=== PATIENT | female | born 1980 | race Caucasian/White ===

== ENCOUNTER 2023-06-15 03:01 | Emergency (ER) | payer SELFPAY ==
[~2023-06-15] VITALS: Ht 165.1 cm; Wt 80.0 kg
[2023-06-15 03:08] VITALS: O2SAT 99
[2023-06-15] MEDS: LORAZEPAM 2MG/ML INJ IV ONE (03:15)
[2023-06-15 03:33] LABS: BASOPHILS % 0.5 % (0.0-2.0); EOSINOPHILS % 5.2 % (0.0-5.0); HEMATOCRIT. 42.8 % (36.0-48.0); LYMPHOCYTES % 19.9 % (20.0-50.0); MEAN CORPUSCULAR HEMOGLOBIN 32.8 pg (28.0-32.0); MEAN CORPUSCULAR HGB CONC 35.1 g/dL (31.0-37.0); MEAN CORPUSCULAR VOLUME 93.4 fL (81.0-99.0); MEAN PLATELET VOLUME 10.5 fl (7.4-10.4); MONOCYTES % 5.2 % (2.0-8.0); NEUTROPHILS % 69.2 % (40.0-76.0); PLATELET 223 x1000/uL (130-400); RED BLOOD CELL COUNT 4.58 mill/uL (4.2-5.4)
[2023-06-15 03:48] LABS: ACETAMINOPHEN < 2 ug/mL (10-30); ALANINE AMINOTRANSFERASE 12 IU/L (10-49); ALBUMIN 4.7 g/dL (3.2-4.8); ASPARTATE AMINOTRANSFERASE 17 IU/L (<34); BILIRUBIN TOTAL 0.5 mg/dL (0.1-1.0); CALCIUM 9.2 mg/dL (8.7-10.4); CARBON DIOXIDE 25 mEq/L (21-32); CHLORIDE 105 mEq/L (98-107); CREATINE KINASE 114 IU/L (34-145); CREATININE 0.8 mg/dL (0.6-1.0); GLUCOSE 141 mg/dL (70-105); POTASSIUM 3.4 mEq/L (3.5-5.1); PROTEIN TOTAL 7.1 g/dL (6.0-8.3); SODIUM 137 mEq/L (136-145); UREA NITROGEN BLOOD 6 mg/dL (9-23)
[2023-06-15 03:51] LABS: ETHANOL BLOOD < 10 mg/dL (<10); TROPONIN I HIGH SENSITIVITY < 4 ng/L (3.0-34)
[2023-06-15 03:55] LABS: HCG SCREEN NEGATIVE
[2023-06-15] MEDS: DIPHENHYDRAMINE 50MG/ML VIAL IM ONE (04:26)
[2023-06-15] MEDS: LORAZEPAM 2MG/ML INJ IM ONE (04:26)
[2023-06-15] MEDS: HALOPERIDOL LACTATE 5MG/ML VIAL IM ONE (04:26)
[2023-06-15] MEDS: SODIUM CHLORIDE 0.9% 1,000 ML IV ONE (09:01)
[2023-06-15 11:05] VITALS: BP 105/51; PULSE 76; RESP 21; TEMP 98.1
== END 2023-06-15 17:32 | disposition home or self-care (01) ==
LOC: ER 03:01
DX: T43.621A Poisoning by amphetamines, accidental (unintentional), initial encounter (principal); Y92.9 Unspecified place or not applicable
CPT/HCPCS: 80053; 80307; 80329; 80320; 82550; 84703; 83605; 85025; 84484; 36415; 71045; 96372; 99284; J1200; J1630; J2060; J7030; Z7610 ×2; G0480